=== PATIENT | male | born 1955 | race Caucasian/White ===

== ENCOUNTER 2018-03-30 10:30 | Inpatient (IN) | payer OTHER ==
[~2018-03-30] VITALS: Ht 165.1 cm; Wt 96.3 kg
[2018-03-30] MEDS ORDERED: LOSA100T28 PO (12:40)
[2018-03-30] MEDS ORDERED: ASPI-611 PO (12:40)
[2018-03-30] MEDS ORDERED: AMLO10TA2 PO (12:41)
[2018-03-30] MEDS ORDERED: MELO-102 PO (12:41)
[2018-03-30] MEDS ORDERED: METO-539 PO (12:44)
[2018-03-30] MEDS ORDERED: TRAM1TAB36 PO (12:45)
[2018-03-30 12:47] LABS: BASOPHILS % (AUTO) 0.3 % (0-1); EOSINOPHILS # (AUTO) 0.6 X10'3 (0-0.9); EOSINOPHILS % (AUTO) 5.6 % (0-6); LYMPHOCYTES # (AUTO) 2.2 X10'3 (1.1-4.8); MEAN CORPUSCULAR HGB CONC 33.9 % (33.0-36.5); MEAN CORPUSCULAR VOLUME 88.5 FL (78-98); MEAN PLATELET VOLUME 7.8 FL (7.4-10.4); MONOCYTES # (AUTO) 0.5 X10'3 (0-0.9); MONOCYTES % (AUTO) 4.9 % (2-12); NEUTROPHILS # (AUTO) 6.7 X10'3 (1.8-7.7); NEUTROPHILS % (AUTO) 67.2 % (42-75); PRE OP HEMOGLOBIN 14.9 g/dL (14.0-17.9); PRE OP PLATELET COUNT 288 X10'3 (140-440); RED BLOOD COUNT 4.97 X10'6 (4.70-6.10); RED CELL DISTRIBUTION WIDTH 14.3 % (11.5-14.5)
[2018-03-30 13:11] LABS: ALKALINE PHOSPHATASE 77 IU/L (46-116); BLOOD UREA NITROGEN 16 MG/DL (7-18); CALCIUM 9.4 MG/DL (8.5-10.1); CHLORIDE 103 MMOL/L (99-107); CREATININE 1.14 MG/DL (0.60-1.10); PRE OP ALT 33 U/L (30-65); PRE OP ANION GAP 8 (8-16); PRE OP AST 18 U/L (10-37); PRE OP BILIRUB, TOTAL 0.4 MG/DL (0.0-1.0); PRE OP GLUCOSE 99 MG/DL (70-104); PRE OP POTASSIUM 3.8 MMOL/L (3.4-5.1); PRE OP SODIUM 141 MMOL/L (135-145); TOTAL CARBON DIOXIDE 29.7 MMOL/L (24-32); TOTAL PROTEIN 8.2 G/DL (6.4-8.2); eGFR 65 ML/MIN
[2018-04-03] VITALS (14 sets, daily range): BP systolic 104–177; BP diastolic 72–98
[2018-04-03] MEDS ORDERED: ringers solution, lacted 1,000 ML IV SCH ×2 (05:00→13:18)
[2018-04-03] MEDS ORDERED: VANCOMYCIN INJ 1000 MG in NORMAL SALINE 250ml IV.SOLN IV ONE (05:30)
[2018-04-03] MEDS ORDERED: ceFAZolin inj. 2,000 MG in dextrose 5%-water 100 ML IV ONE (05:30)
[2018-04-03] MEDS ORDERED: famotidine 20mg tablet PO ONE (05:30)
[2018-04-03] MEDS ORDERED: DOCUMENT DATE & TIME OF BETA-BLOCKER PO ONE (05:30)
[2018-04-03] MEDS ORDERED: tranexamic acid inj. 1,000 MG in normal saline 100ml IV soln 90 ML IV ONE ×4 (05:30)
[2018-04-03] MEDS ORDERED: ROPIVAcaine 0.5% (5mg/ml) 30ml vial ONE ×2 (11:45→11:54)
[2018-04-03] MEDS ORDERED: ketorolac trometh. 30mg/ml inj. ONE (11:54)
[2018-04-03] MEDS ORDERED: vancomycin 1,000mg inj ONE (12:08)
[2018-04-03] MEDS ORDERED: sevoflurane 250ml liquid IH ONE (12:24)
[2018-04-03] MEDS ORDERED: ondansetron/PF 4mg/2ml inj ONE (12:24)
[2018-04-03] MEDS ORDERED: fentaNYL/PF 50MCG/1 ML 2ML syringe ONE ×2 (12:32→12:33)
[2018-04-03] MEDS ORDERED: midazolam 2 mg/2 ml injection ONE (12:33)
[2018-04-03] MEDS ORDERED: propofol inj 20 ML IV ONE (13:06)
[2018-04-03] MEDS ORDERED: LIDOcaine 2% (20mg/ml) 5ml vial ONE (13:07)
[2018-04-03] MEDS ORDERED: dexamethasone sod phosphate 4mg/ml inj. ONE (13:08)
[2018-04-03] MEDS ORDERED: ondansetron/PF 4mg/2ml inj IV PRN ×2 (13:20→14:35)
[2018-04-03] MEDS ORDERED: enalaprilat dihydrate 2.5mg/2ml vial IV PRN (13:20)
[2018-04-03] MEDS ORDERED: fentaNYL/PF 50MCG/1 ML 2ML syringe IV PRN ×2 (13:20)
[2018-04-03] MEDS ORDERED: hydrALAZINE 20mg/ml inj. IV PRN (13:20)
[2018-04-03] MEDS ORDERED: morphine 4 MG/ML inj SYRINge IV PRN ×2 (13:20)
[2018-04-03] MEDS ORDERED: potassium cl 20mEq in 1/2 NS 1,000 ML IV SCH (14:35)
[2018-04-03] MEDS ORDERED: magnesium hydroxide 30ml (MOM) UD suspension PO PRN (14:35)
[2018-04-03] MEDS ORDERED: bisacodyl 10mg suppository rectal RC PRN (14:35)
[2018-04-03] MEDS ORDERED: HYDROmorphone 1 mg/ml syringe IV PRN ×2 (14:35)
[2018-04-03] MEDS ORDERED: acetaminophen 325mg tablet PO PRN (14:35)
[2018-04-03] MEDS ORDERED: oxyCODONE IR 5mg (immed. release) tablet PO PRN ×2 (14:35)
[2018-04-03] MEDS ORDERED: diphenhydrAMINE 25mg capsule PO PRN ×2 (14:35)
[2018-04-03] MEDS ORDERED: traMADol 50MG tablet PO PRN (16:00)
[2018-04-03] MEDS ORDERED: ceFAZolin 1GM/D5W- ADD-VANTAGE 50 ML IV SCH (16:00)
[2018-04-03] MEDS ORDERED: tranexamic acid inj. 960 MG in normal saline 100ml IV soln 100 ML IV ONE (17:30)
[2018-04-03] MEDS ORDERED: ketorolac tromethamine 15mg/ml inj. IV SCH (20:00)
[2018-04-03] MEDS ORDERED: metoprolol succinate 25mg (24-HOUR) SR. Tablet PO SCH (20:00)
[2018-04-03] MEDS ORDERED: acetaminophen 325mg tablet PO SCH (20:00)
[2018-04-03] MEDS ORDERED: vancomycin/NS 1 GM ADD-VANTAGE 250 ML IV SCH (20:00)
[2018-04-03] MEDS ORDERED: sennosides 8.6mg tablet PO SCH (21:00)
[2018-04-03] MEDS ORDERED: gabapentin 300mg capsule PO SCH (21:00)
[2018-04-04] MEDS ORDERED: aspirin 81mg tab.chew PO SCH (08:00)
[2018-04-04] MEDS ORDERED: losartan 50mg tablet PO SCH (08:00)
[2018-04-04] MEDS ORDERED: naproxen 500mg tablet PO SCH (08:00)
[2018-04-04] MEDS ORDERED: amLODIPine 5mg tablet PO SCH (08:00)
[2018-04-04] MEDS ORDERED: aspirin 325mg tablet PO SCH (08:30)
[2018-04-04] MEDS ORDERED: celeCOXIB 100mg capsule PO SCH (20:00)
[2018-04-05] MEDS ORDERED: acetaminophen 325mg tablet PO PRN (14:35)
== END 2018-04-03 19:55 | disposition home or self-care (01) | DRG 483 ==
LOC: PAS IN 04-03 07:30 → EDSTATUS 04-03 09:30 → ORTHO 4S 04-03 15:47
PROVIDERS: ADMIT Orthopaedic Surgery; ATTEND Orthopaedic Surgery
PROC: 0LS40ZZ Reposition Left Upper Arm Tendon, Open Approach (ICD-10-PCS; 2018-04-03)
PROC: 3E0T3BZ Introduction of Anesthetic Agent into Peripheral Nerves and Plexi, Percutaneous Approach (ICD-10-PCS; 2018-04-03)
PROC: 0RRK00Z Replacement of Left Shoulder Joint with Reverse Ball and Socket Synthetic Substitute, Open Approach (ICD-10-PCS; principal; 2018-04-03 12:29)
DX: M19.012 Primary osteoarthritis, left shoulder (principal); M75.122 Complete rotator cuff tear or rupture of left shoulder, not specified as traumatic; I10 Essential (primary) hypertension; M75.52 Bursitis of left shoulder; M75.22 Bicipital tendinitis, left shoulder; Z90.49 Acquired absence of other specified parts of digestive tract; Z79.899 Other long term (current) drug therapy; Z82.49 Family history of ischemic heart disease and other diseases of the circulatory system; Z82.3 Family history of stroke
CPT/HCPCS: 36415; 80053; 85025; 87070; A4565; A4620; A7000; J0690; J1100; J1885; J2001; J2250; J2405; J2704; J2795; J3010; J3370; J7030; J7060; J7120